=== PATIENT | male | born 1990 | race Caucasian/White ===

== ENCOUNTER 2017-05-26 21:01 | Emergency (ER) | payer MEDICAID, OTHER ==
[2017-05-26] MEDS ORDERED: ONDANSETRON 4 MG/2 ML VIAL ONE (21:17)
[2017-05-26] MEDS ORDERED: HYDROmorphONE/DILAUDID 1 MG/ML INJ ONE (21:18)
[2017-05-26] MEDS ORDERED: ONDANSETRON 4 MG/2 ML VIAL IVP ONE (21:20)
[2017-05-26] MEDS ORDERED: NS 1,000 ML IV ONE ×2 (21:20→21:25)
[2017-05-26] MEDS ORDERED: HYDROmorphONE/DILAUDID 1 MG/ML INJ IVP ONE (21:20)
[2017-05-26 21:36] LABS: PLATELET COUNT 293 10^3/uL (150-400)
[2017-05-26] MEDS ORDERED: KETOROLAC 30 MG/1 ML SDV IVP ONE (21:57)
--- NOTE | 2017-05-26 22:40 | EDPHY ---
H & P Stated Complaint: RLQ/ R flank pain, hx kidney stones Time Seen by Provider: 05/26/17 21:12 HPI/ROS: Chief complaint: Right flank pain History of present illness: This is a 27-year-old male who presents to the emergency department for evaluation of right flank pain. Patient reports the onset of symptoms just prior to arrival. He describes a sharp pain radiating around towards the abdomen. He has noted a change in the color of his urine. He denies precipitating factors. He denies alleviating factors. He states he has a history kidney stones, at least 20, this feels similar. No other associated signs or symptoms including no fevers, no abdominal pain, no nausea, vomiting or diarrhea. Review of systems: A 10 point review of systems was obtained and other than described above was negative - Personal History Current Tetanus/Diphtheria Vaccine: Yes - Medical/Surgical History Hx Asthma: No Hx Chronic Respiratory Disease: No Hx Diabetes: No Hx Cardiac Disease: No Hx Renal Disease: No Hx Cirrhosis: No Hx Alcoholism: No Hx HIV/AIDS: Yes Hx Splenectomy or Spleen Trauma: No Other PMH: HIV,. kidney stones - Social History Smoking Status: Heavy smoker - Physical Exam Exam: General Appearance: Alert, appears uncomfortable. Eyes: Pupils equal and round no pallor or injection. ENT, Mouth: Mucous membranes moist. Respiratory: There are no retractions, lungs are clear to auscultation. Cardiovascular: Regular rate and rhythm. Gastrointestinal: Abdomen is soft and non tender, no masses, bowel sounds normal. Neurological: Alert and oriented x4. Strength and sensation intact and symmetrical. Skin: Warm and dry, no rashes. Musculoskeletal: Neck is supple non tender. Extremities are symmetrical, full range of motion. Psychiatric: Patient is oriented X 3, there is no agitation. Constitutional: Initial Vital Signs Temperature (C) 36.4 C 05/26/17 21:06 Heart Rate 78 05/26/17 21:06 Respiratory Rate 24 H 05/26/17 21:06 Blood Pressure 122/46 H 05/26/17 21:06 O2 Sat (%) 92 05/26/17 21:06 O2 Delivery Mode Room Air Allergies/Adverse Reactions: No Known Allergies Allergy (Unverified 05/26/17 21:10) Home Medications: Medication Instructions Recorded Odefsey Tablet 05/26/17 Medical Decision Making - Diagnostics Imaging: Discussed imaging studies w/ body recall instructor Radiologist ED Course/Re-evaluation: Patient seen under the supervision of my secondary supervising physician Dr. Julius Joseph. Patient presents to the emergency department for right flank pain. He is nontoxic. Vital signs are stable. Blood studies unremarkable. Urinalysis does show blood. However CT scan is unremarkable. Pain has been controlled. He will be discharged home. He is to follow up with a primary care doctor for recheck. Return precautions are given. Patient voiced understanding and agreement with plan. Differential Diagnosis: Included but not limited to nephrolithiasis, urinary tract infection, appendicitis - Data Points Laboratory Results: Laboratory Results 05/26/17 21:20 05/26/17 21:20 Medications Given: Discontinued Medications Hydromorphone HCl (Dilaudid) 1 mg IVP EDNOW ONE Stop: 05/26/17 21:21 Last Admin: 05/26/17 21:24 Dose: 1 mg Sodium Chloride (Ns) 1,000 mls @ 0 mls/hr IV ONCE ONE PRN Reason: Wide Open Stop: 05/26/17 21:21 Last Admin: 05/26/17 21:23 Dose: 1,000 mls Sodium Chloride (Ns) 1,000 mls @ 0 mls/hr IV EDNOW ONE; Wide Open PRN Reason: Protocol Stop: 05/26/17 21:26 Last Admin: 05/26/17 22:09 Dose: 1,000 mls Ketorolac Tromethamine (Toradol) 30 mg IVP EDNOW ONE Stop: 05/26/17 21:58 Last Admin: 05/26/17 22:09 Dose: 30 mg Ondansetron HCl (Zofran) 4 mg IVP EDNOW ONE Stop: 05/26/17 21:21 Last Admin: 05/26/17 21:22 Dose: 4 mg Departure - Departure Disposition: Home, Routine, Self-Care Clinical Impression: Hematuria Qualifiers: Hematuria type: unspecified type Qualified Code(s): R31.9 - Hematuria, unspecified Condition: Good Instructions: Hematuria (ED) Additional Instructions: Follow-up with a primary care doctor or urologist for recheck Use [id number] ibuprofen or Tylenol as directed as needed for pain If symptoms worsen or new symptoms develop return to the emergency room for recheck Referrals: [facility] [Other] - As per Instructions Emily Peterson MD [Medical Doctor] - As per Instructions
[2017-05-26 23:03] VITALS: BP 106/57; PULSE 74; RESP 20; TEMP 98.1; O2SAT 96
== END 2017-05-26 23:03 | disposition home or self-care (01) ==
DX: R31.9 Hematuria, unspecified (principal); F17.200 Nicotine dependence, unspecified, uncomplicated; B20 Human immunodeficiency virus [HIV] disease; E86.9 Volume depletion, unspecified
CPT/HCPCS: 96374; J1170; J1885; J2405

== ENCOUNTER 2017-08-20 15:46 | Emergency (ER) | payer SELFPAY ==
[2017-08-20] MEDS ORDERED: NS 1,000 ML IV ONE (16:48)
[2017-08-20] MEDS ORDERED: KETOROLAC 15 MG/1 ML SDV IVP ONE (16:49)
--- NOTE | 2017-08-20 16:53 | EDPHY ---
H & P Time Seen by Provider: 08/20/17 16:10 HPI/ROS: CHIEF COMPLAINT: Right flank pain HISTORY OF PRESENT ILLNESS: 27-year-old male with history of kidney stones presents with right flank pain. Onset of severe right flank pain at 5:00 a.m.. The pain waxed and waned since then was associated with multiple episodes of vomiting. Currently the pain is quite mild. Similar to prior kidney stones. Since starting medications for HIV 6 years ago, he has had multiple kidney stones. REVIEW OF SYSTEMS: Constitutional: No fever, no chills Eyes: No visual changes ENT: No sore throat Respiratory: No cough, no shortness of breath Cardiac: No chest pain Genitourinary: No hematuria, no dysuria Musculoskeletal: No leg pain or swelling Skin: No rash Neurological: No headache, no weakness Psychiatric: No depression Past Medical/Surgical History: Kidney stones HIV positive, CD4 count 1200, viral load undetectable Social History: Single Smoking Status: Current every day smoker Physical Exam: General Appearance: Alert, pleasant Eyes: Pupils equal and round, no conjunctival pallor or injection ENT, Mouth: Mucous membranes moist Neck: Normal inspection Respiratory: Lungs are clear to auscultation Cardiovascular: Regular rate and rhythm Gastrointestinal: Abdomen is soft, right upper quadrant tenderness Back: Right CVA tenderness Neurological: A&O, nonfocal, normal gait Skin: Warm and dry, no rash Extremities: Normal inspection Psychiatric: Mood and affect normal Constitutional: Initial Vital Signs Temperature (C) 36.6 C 08/20/17 15:50 Heart Rate 98 08/20/17 15:50 Respiratory Rate 18 08/20/17 15:50 Blood Pressure 111/65 08/20/17 15:50 O2 Sat (%) 96 08/20/17 15:50 O2 Delivery Mode Room Air Allergies/Adverse Reactions: No Known Allergies Allergy (Verified 08/20/17 15:55) Home Medications: Medication Instructions Recorded Odefsey Tablet 05/26/17 Medical Decision Making - Diagnostics Imaging Results: KUB: renal calculi bilaterally Imaging: I viewed and interpreted images myself ED Course/Re-evaluation: This pt with h/o kidney stones presents with right flank pain, c/w renal colic. IV NS 1 liter and Toradol 15mg IV given. KUB reveals no visible ureteral calculus. Pt's sx resolved in ED, will d/c home. Abd remained soft, NT. Will take Ibuprofen for recurrent pain, RTED if sx worsen. Differential Diagnosis: includes though not limited to appy, pyelo, musculoskeletal, cholecystitis - Data Points Laboratory Results: Laboratory Results 08/20/17 16:05 08/20/17 16:05 Medications Given: Discontinued Medications Sodium Chloride (Ns) 1,000 mls @ 0 mls/hr IV EDNOW ONE; Wide Open PRN Reason: Protocol Stop: 08/20/17 16:49 Last Admin: 08/20/17 16:56 Dose: 1,000 mls Ketorolac Tromethamine (Toradol) 15 mg IVP EDNOW ONE Stop: 08/20/17 16:50 Last Admin: 08/20/17 16:54 Dose: 15 mg Departure - Departure Disposition: Home, Routine, Self-Care Clinical Impression: Renal colic on right side Condition: Good Instructions: Kidney Stones (ED) Additional Instructions: Ibuprofen 600 mg 3 times daily while the pain persists. Referrals: ERIC TAVERAS [Other] - As per Instructions
[2017-08-20 16:55] LABS: PLATELET COUNT 239 10^3/uL (150-400)
[2017-08-20 17:45] VITALS: BP 136/66
== END 2017-08-20 17:43 | disposition home or self-care (01) ==
DX: N23 Unspecified renal colic (principal); B20 Human immunodeficiency virus [HIV] disease; F17.200 Nicotine dependence, unspecified, uncomplicated; E86.9 Volume depletion, unspecified
CPT/HCPCS: 96374; J1885